=== PATIENT | male | born 1950 | race Caucasian/White ===

== ENCOUNTER 2019-06-05 13:04 | Inpatient (IN) | payer MEDICARE, OTHER ==
[~2019-06-05] VITALS: Ht 167.6 cm; Wt 58.8 kg
[2019-06-05] MEDS ORDERED: ALBUTEROL SULF 2.5 MG/0.5ML(0.5%) NEB SOLN HHN ONE (13:45)
[2019-06-05] MEDS ORDERED: IPRATROPIUM BROM 0.5 MG/2.5ML INH SOL HHN ONE (13:45)
[2019-06-05] MEDS ORDERED: methylPREDNISolone SOD SUCC 125 MG/2 ML VL IV ONE (13:45)
[2019-06-05 14:03] LABS: Basophils # (auto) 0.1 uL; Basophils % (auto) 0.5 % (0.0-2.0); Eosinophils # (auto) 0.1 uL; Eosinophils % (auto) 0.5 % (0.0-7.0); Hematocrit 46.8 % (41.0-53.0); Hemoglobin 15.1 g/dL (13.5-17.5); Lymphocytes # (auto) 1.6 uL; Lymphocytes % (auto) 12.7 % (10.0-50.0); Mean Corpuscular Hemoglobin 27.7 pg (28.0-32.0); Mean Corpuscular Hgb Conc. 32.2 g/dL (32.0-36.0); Mean Corpuscular Volume 86.1 fL (80.0-100.0); Monocytes % (auto) 8.1 % (0.0-12.0); Neutrophils # (auto) 9.8 uL; Neutrophils % (auto) 78.2 % (37.0-80.0); Nucleated Red Blood Cells % 0.2 %; Platelet Count (auto) 320 10^3/uL (140-450); Red Blood Cells 5.43 10^6/uL (4.5-5.90); Red Cell Distribution Width 16.6 % (11.8-14.3); White Blood Cell 12.5 10^3/uL (4.4-10.8)
[2019-06-05 14:13] LABS: Albumin 3.2 g/dL (3.4-5.0); Calcium 8.6 mg/dL (8.5-10.1); Magnesium 2.5 mg/dL (1.6-2.6); Potassium 3.2 mmol/L (3.5-5.1)
[2019-06-05 14:19] LABS: BUN/Creatinine Ratio 19.4; Bilirubin, Total 1.3 mg/dL (0.2-1.0); Total Protein 7.1 g/dL (6.4-8.2)
[2019-06-05 15:08] LABS: Lactic Acid w/Reflex 2.1 mmol/L (0.4-2.0)
[2019-06-05] MEDS ORDERED: FUROSEMIDE 40 MG/4 ML VIAL IV ONE (15:45)
[2019-06-05] MEDS ORDERED: hydrALAZINE HCL 20 MG/ML VL IV PRN (16:00)
[2019-06-05] MEDS ORDERED: CARVEDILOL 3.125 MG TAB PO ONE (16:00)
[2019-06-05] MEDS ORDERED: HYDROcodone-ACET 5/325MG TAB PO PRN (16:00)
[2019-06-05] MEDS ORDERED: ONDANSETRON HCL 4 MG/2 ML VIAL IV PRN (16:00)
[2019-06-05] MEDS ORDERED: ACETAMINOPHEN 500 MG TAB PO PRN (16:00)
[2019-06-05] MEDS ORDERED: MORPHINE SULF INJ 2 MG/ML SYRINGE 1ML IV PRN ×2 (16:00)
[2019-06-05] MEDS ORDERED: NITROGLYCERIN 0.4 MG SL TAB SL PRN (16:00)
[2019-06-05] MEDS ORDERED: AZITHROMYCIN 250 MG TAB PO ONE (16:00)
[2019-06-05] MEDS ORDERED: cefTRIAXone 1GM/50ML D5W 50 ML IV ONE (16:00)
[2019-06-05] MEDS ORDERED: POTASSIUM CHL 20 Meq TABLET PO ONE (16:00)
[2019-06-05] MEDS: IPRATROPIUM BROM 0.5 MG/2.5ML INH SOL NEB SCH (18:38)
[2019-06-05] MEDS: BUDESONIDE (INHALATION) 0.5 MG/2 ML NEB NEB SCH (18:38)
[2019-06-05] MEDS: ALBUTEROL SULF 2.5 MG/0.5ML(0.5%) NEB SOLN NEB SCH (18:38)
[2019-06-05 19:09] VITALS: BP 136/118
[2019-06-05] MEDS: CARVEDILOL 3.125 MG TAB PO SCH (20:43)
[2019-06-05] MEDS: DOCUSATE SOD 100 MG CAP PO SCH (20:43)
[2019-06-05] MEDS: ATORVASTATIN 20 MG TAB PO SCH (20:43)
[2019-06-05 20:56] LABS: Urine Bacteria FEW /hpf (None Seen); Urine Blood Negative /uL (Negative); Urine Specific Gravity 1.005 (1.001-1.035); Urine WBC <1 /hpf (0 - 3)
[2019-06-05 23:00] VITALS: BP 137/113
--- NOTE | 2019-06-05 23:10 | NUR ---
Telemetry admit from ER TOMERJADE admitted to Telemetry unit. Patient oriented to So Marcos RN primary RN, unit, room, bed, and unit policies regarding patient care and visiting hours. Patient now on continuous telemetry monitoring, tele box # 15 and telemetry reading on arrival to unit is NSR. Patient placed on bedside oxygen, weighed by bedscale and encouraged to call if they need something. All questions and concerns addressed, patient verbalized understanding. Note: patient awake and alert, oriented x 4, follows directions, speech unclear. Patient on room air with o2 sat 80-83%, applied oxygen 4L via NC, o2 sat increased to 98%, RR28, noted SOB at rest, lung sound coarse rhonchi throughout. Patient report he "gets SOB when he talks alot." Patient is able to turn independently in bed. Noted blanchable redness to sacrum. Patient denies pain at this time. Urinal provided within reach. IV to right AC 20g intact and patent. Bed low locked position with side rails up x 2 and call light within reach, bed alarm on. Will continue to monitor.
[2019-06-06] MEDS: ALBUTEROL SULF 2.5 MG/0.5ML(0.5%) NEB SOLN NEB SCH ×4 (00:42→18:17)
[2019-06-06] MEDS: IPRATROPIUM BROM 0.5 MG/2.5ML INH SOL NEB SCH ×4 (00:42→18:17)
--- NOTE | 2019-06-06 02:20 | NUR ---
Brody Oshea NP RE: respiratory status patient RR28, labored, SOB, o2 88% with oxygen on at 5L via NC. awaiting call back, will continue care.
[2019-06-06] MEDS ORDERED: FUROSEMIDE 20 MG/2 ML VIAL ONE (02:25)
--- NOTE | 2019-06-06 02:25 | NUR ---
Received call back from AYANNA Oshea updated on patient status, new orders obtained, see EMR. Read and verified orders, will carry out and continue care.
[2019-06-06] MEDS ORDERED: FUROSEMIDE 20 MG/2 ML VIAL IV ONE (02:45)
[2019-06-06 05:47] VITALS: BP 144/116
[2019-06-06] MEDS: BUDESONIDE (INHALATION) 0.5 MG/2 ML NEB NEB SCH ×2 (06:10→18:17)
--- NOTE | 2019-06-06 07:15 | NUR ---
Closing note patient sleeping in bed with oxygen on at 3L via NC, noted chest rise and fall, no s/s of distress or pain. IV intact and patent. Bed low locked position with side rails up x 2, call light within reach, HOB elevated, bed alarm on. Endorsed care to day shift ELIZABETH Davison.
--- NOTE | 2019-06-06 08:00 | NUR ---
Opening Shift Note Assumed care of patient, awake, alert and oriented X4. No S/S of distress/SOB or pain. O2 @ 4 LPM via nasal cannula with Sats @ 96%. Tele# 15, sinus rhythm @ 96 bpm. IV to right antecubital, 20 gauge, patent and saline locked. Instructed on POC and to call for assist PRN, verbalized understanding. Bed locked, in lowest position, call light within reach, will continue to monitor for changes Q1hr and PRN.
[2019-06-06 08:03] LABS: Basophils # (auto) 0.1 uL; Basophils % (auto) 0.5 % (0.0-2.0); Eosinophils # (auto) 0 uL; Hematocrit 46.6 % (41.0-53.0); Lymphocytes # (auto) 0.9 uL; Lymphocytes % (auto) 7.8 % (10.0-50.0); Mean Corpuscular Hemoglobin 27.8 pg (28.0-32.0); Mean Corpuscular Hgb Conc. 32.2 g/dL (32.0-36.0); Mean Corpuscular Volume 86.4 fL (80.0-100.0); Monocytes # (auto) 0.6 uL; Monocytes % (auto) 5.5 % (0.0-12.0); Neutrophils # (auto) 9.8 uL; Neutrophils % (auto) 86.2 % (37.0-80.0); Nucleated Red Blood Cells % 0.2 %; Platelet Count (auto) 288 10^3/uL (140-450); Red Cell Distribution Width 17.2 % (11.8-14.3); White Blood Cell 11.4 10^3/uL (4.4-10.8)
[2019-06-06 08:11] LABS: BUN/Creatinine Ratio 30.3; Potassium 3.7 mmol/L (3.5-5.1)
[2019-06-06 08:51] LABS: INR 1.28 (0.9-1.15); Partial Thromboplastin Time 33.6 sec (23.64-32.05)
[2019-06-06 09:00] VITALS: BP 155/70
[2019-06-06] MEDS ORDERED: LISINOPRIL 10 MG TAB PO SCH (10:00)
[2019-06-06] MEDS ORDERED: FUROSEMIDE 20 MG TAB PO SCH (10:00)
--- NOTE | 2019-06-06 10:30 | NUR ---
WOUND CARE NOTE: IN TO SEE PATIENT AT THIS TIME PER WOUND CARE CONSULT REQUEST. PATIENT WAS NOTED TO HAVE DARK RED RASH IN GROIN/SCROTAL AREAS, WOUND PHOTOS TAKEN UPON ADMIT BY BEDSIDE NURSE FOR REFERENCE, WOUND CONSULT ORDERED. PATIENT ADMITTED TO [facility] WITH DIAGNOSIS OF HEART FAILURE. CURRENT JULIA SCORE IS 18. PATIENT CAN SELF TURN/REPOSITION SELF. PATIENT NOTED TO HAVE INTERTRIGINOUS RASH TO GROIN, PERINEUM, SCROTAL SKIN. SKIN IS DARK/BRIGHT RED. PATIENT WOULD BENEFIT FROM BID/PRN APPLICATION WITH ANTIFUNGAL CLEAR OINTMENT TO INTERTRIGINOUS RASH AREAS, SKIN/WOUND CARE PLAN. NO FURTHER WOUND CARE MONITORING NEEDED. Addendum: 06/06/19 at 1243 by Elsa Rich RN Amended: Links added.
[2019-06-06] MEDS: cefTRIAXone 1GM/50ML D5W 50 ML IV SCH (10:57)
[2019-06-06] MEDS: CARVEDILOL 3.125 MG TAB PO SCH ×2 (11:08→22:06)
[2019-06-06] MEDS: DOCUSATE SOD 100 MG CAP PO SCH ×2 (11:09→22:04)
[2019-06-06] MEDS: ASPirin-EC 81 mg tab PO SCH (11:09)
[2019-06-06] MEDS: AZITHROMYCIN 250 MG TAB PO SCH (11:10)
[2019-06-06] MEDS: FAMOTIDINE 20 MG TAB PO SCH (12:05)
--- NOTE | 2019-06-06 12:21 | NUR ---
Pt was given an advance directive.
[2019-06-06 13:00] VITALS: BP 144/104
--- NOTE | 2019-06-06 15:22 | NUR ---
CARDIOLOGY Jordon Guillaume at bedside for Cardiology consult. New orders received and followed through. Patient updated on plan of care, verbalized understanding.
[2019-06-06] MEDS ORDERED: amLODIPine BESYLATE 5 MG TAB PO ONE (15:30)
--- NOTE | 2019-06-06 16:47 | NUR ---
assessment Per consult living situation. Patient informed me he lives with family and functions independently. Patient informed me he will return home on discharge. Patient informed me he feels safe returning home on discharge. Patient informed me he has no post discharge needs. Addendum: 06/06/19 at 1649 by Clair Gay Amended: Links added.
[2019-06-06] MEDS: FUROSEMIDE 40 MG/4 ML VIAL IV SCH (17:49)
[2019-06-06 18:42] VITALS: BP 113/92
--- NOTE | 2019-06-06 18:58 | NUR ---
Care endorsed to ELIZABETH Rizzo, night nurse.
--- NOTE | 2019-06-06 20:00 | NUR ---
Opening Shift Note Assumed care of patient, awake and alert, oriented x 2, re-oriented to year and situation, follows directions, unclear speech. On oxygen at 3L via NC with even and unlabored respirations, No S/S of distress or SOB. patient denies pain at this time. Patient is able to turn in bed independently, sacrum intact, no redness noted. Noted absorbant pads soiled in urine, patient report he is aware of the need to void but couldn't get to urinal in time. Provided pericare, cleansed with soap and water, pat dry, noted redness to bilateral groins and left scrotum, applied antifungal cream. Full linen change. Educated patient to call if he urinates himself, educated on risk for skin breakdown, patient verbalized understanding. IV intact and patent. Bed low locked position with side rails up x 3 and call light within reach, bed alarm on. Instructed on POC and to call for assist PRN, will continue to monitor for changes Q1hr and PRN.
[2019-06-06 22:00] VITALS: BP 117/83
[2019-06-06] MEDS: ATORVASTATIN 20 MG TAB PO SCH (22:04)
[2019-06-07 05:00] VITALS: BP 98/62
--- NOTE | 2019-06-07 05:30 | NUR ---
Strict I & O / Periods of incontinence
[2019-06-07] MEDS: FUROSEMIDE 40 MG/4 ML VIAL IV SCH ×2 (06:00→18:41)
[2019-06-07 06:05] LABS: Basophils # (auto) 0.1 uL; Basophils % (auto) 0.6 % (0.0-2.0); Eosinophils # (auto) 0.3 uL; Hematocrit 47.6 % (41.0-53.0); Hemoglobin 15.7 g/dL (13.5-17.5); Lymphocytes # (auto) 1.2 uL; Lymphocytes % (auto) 8.6 % (10.0-50.0); Mean Corpuscular Hemoglobin 28.3 pg (28.0-32.0); Mean Corpuscular Hgb Conc. 32.9 g/dL (32.0-36.0); Mean Corpuscular Volume 85.8 fL (80.0-100.0); Monocytes # (auto) 0.9 uL; Monocytes % (auto) 6.9 % (0.0-12.0); Neutrophils % (auto) 81.9 % (37.0-80.0); Nucleated Red Blood Cells % 0.3 %; Platelet Count (auto) 282 10^3/uL (140-450); Red Blood Cells 5.55 10^6/uL (4.5-5.90); Red Cell Distribution Width 17.2 % (11.8-14.3); White Blood Cell 13.4 10^3/uL (4.4-10.8)
[2019-06-07] MEDS: ALBUTEROL SULF 2.5 MG/0.5ML(0.5%) NEB SOLN NEB SCH ×3 (06:15→18:53)
[2019-06-07] MEDS: IPRATROPIUM BROM 0.5 MG/2.5ML INH SOL NEB SCH ×3 (06:15→18:54)
[2019-06-07] MEDS: BUDESONIDE (INHALATION) 0.5 MG/2 ML NEB NEB SCH ×2 (06:16→18:54)
[2019-06-07 06:20] LABS: Albumin 2.8 g/dL (3.4-5.0); Calcium 8.2 mg/dL (8.5-10.1); Potassium 3.5 mmol/L (3.5-5.1)
[2019-06-07 06:24] LABS: BUN/Creatinine Ratio 28.4; Bilirubin, Total 0.8 mg/dL (0.2-1.0); Total Protein 6.2 g/dL (6.4-8.2)
--- NOTE | 2019-06-07 07:00 | NUR ---
Closing note patient sleeping in bed with oxygen on at 3L via NC, noted chest rise and fall, RT at bedside, o2 99%, no s/s of distress or pain. IV intact and patent. Bed low locked position with side rails up x 2, call light within reach, HOB elevated, bed alarm on. Endorsed care to day shift RN.
[2019-06-07 09:00] VITALS: BP 101/73
[2019-06-07] MEDS: FAMOTIDINE 20 MG TAB PO SCH (09:58)
[2019-06-07] MEDS: DOCUSATE SOD 100 MG CAP PO SCH ×2 (09:58→21:28)
[2019-06-07] MEDS: AZITHROMYCIN 250 MG TAB PO SCH (09:58)
[2019-06-07] MEDS: ASPirin-EC 81 mg tab PO SCH (10:00)
[2019-06-07] MEDS: CARVEDILOL 3.125 MG TAB PO SCH (10:00)
--- NOTE | 2019-06-07 10:00 | NUR ---
COMPLETE LINEN CHANCE PERFORMED PATIENT GIVEN FULL BED BATH AND COMPLETE LINEN CHANGE PERFORMED. ANTIFUNGAL CREAM APPLIED TO PRABHA AREA AND SCROTAL AREA. PATIENT TOLERATED IT WELL WITH NO C/O PAIN OR DISTRESS. WILL CONT CARE. FALL PRECS IN PLACE PER PROTOCOL.
[2019-06-07] MEDS: cefTRIAXone 1GM/50ML D5W 50 ML IV SCH (10:02)
--- NOTE | 2019-06-07 10:53 | NUR ---
STRESS TEST PATIENT NPO FOR STRESS TEST ORDERED BY [facility]. PER TECH THEY WILL START TEST BUT MAY NOT FINISH TODAY DUE TO HIGH NUMBER OF PATIENT'S AWAITING TESTING. PATIENT AWARE AND VERBALIZED UNDERSTANDING. CONT CARE
[2019-06-07 13:00] VITALS: BP 107/79
[2019-06-07 17:00] VITALS: BP 113/81
--- NOTE | 2019-06-07 17:30 | NUR ---
Regarding stress test This rn spoke to Harry in nuc med, he states patient stress test will be done tomorrow morning because "there is no time today". Patient made aware and will be provided dinner tray. Upon entering the room patient noted sleeping on left side, once patient turned on his back, the left hand noted cyanotic and cold. Pulses assessed and no changes noted from this morning. Pulses palpable to bilat radial. Right hand mildly cyanotic and cold. Pulse ox assessed on right hand on room air is 91%, left hand pulse ox does not read. Patient placed on 2L n/c supplemental oxygen and pulse ox taken via earlobe and right index finger and is 96%. Warm pack applied to bilat hands. Patient denies any pain, denies hx arthritis. No distress or sob noted. Patient awake and alert and answers questions appropriately. Grisel Navarro NP made aware regarding stress test and cyanosis noted and new order for arterial US left extremity ordered. Will cont to monitor
--- NOTE | 2019-06-07 18:45 | NUR ---
Patient resting in bed comfortably, no s/s of pain or distress noted. Patient currently on 2L n/c sat 94%. Left hand noted warm dry normal color. R.T. at bedside for treatment. Will endorse care to oncoming rn
--- NOTE | 2019-06-07 19:45 | NUR ---
Opening Shift Note Assumed care of patient, awake and alert, oriented x 4, follows directions, unclear speech. On oxygen at 2L via NC with even and unlabored respirations, No S/S of distress or SOB. patient denies pain at this time. Patient is able to turn in bed independently. Noted absorbant pads slightly soiled in urine, provided pericare, cleansed with soap and water, pat dry, applied noted redness to bilateral groins and left scrotum, applied z-guard to left and right buttocks. Partial linen change. Educated patient to call if he urinates himself, educated on risk for skin breakdown, patient verbalized understanding. IV intact and patent. Bed low locked position with side rails up x 3 and call light within reach, bed alarm on. Instructed on POC for NPO after midnight, patient verbalized understanding. Instructed to call for assist PRN, will continue to monitor for changes Q1hr and PRN.
[2019-06-07] MEDS: ATORVASTATIN 20 MG TAB PO SCH (21:28)
[2019-06-07 22:00] VITALS: BP 123/54
[2019-06-07] MEDS ORDERED: CARVEDILOL 3.125 MG TAB PO SCH (22:00)
--- NOTE | 2019-06-08 04:00 | NUR ---
Attempted secondary IV x 2 unsuccessful. Educated patient for indication of secondary IV, patient verbalized understanding but continued to move around and swing hands at staff.
[2019-06-08 05:23] VITALS: BP 114/79
[2019-06-08] MEDS: FUROSEMIDE 40 MG/4 ML VIAL IV SCH (06:18)
--- NOTE | 2019-06-08 06:30 | NUR ---
Rounds patient sleeping with even and unlabored respirations, noted NC was off patient, attempted to place oxygen back on, patient swung hand, grabbed oxygen tubing and threw it, educated patient for indication of oxygen patient stated "You can shave it up your ass." No s/s of respiratory distress. Noted absorbant pad was soiled with urine, attempted to change patient, patient refused, educated patient on risk for skin breakdown, patient stated "I don't care, leave me alone." Will attempt again and continue care. Bed alarm on.
--- NOTE | 2019-06-08 06:45 | NUR ---
Linens changed patient lying at foot of bed, no s/s of distress, even and unlabored respirations. Explained to patient linens needed to changed due to soiled linens, patient compliant at this time with BUDDY Pa at bedside. Cleansed patient, changed linens and gown, patient sitting upright in bed with oxygen on at 2L via NC. Bed alarm on.
--- NOTE | 2019-06-08 07:00 | NUR ---
Closing note patient sleeping in bed with oxygen on at 2L via NC, noted chest rise and fall, no s/s of distress or pain. IV intact and patent. Patient was incontinent throughout the night, did not use urinal during shift. Patient is clean and dry and this time. Bed low locked position with side rails up x 2, call light within reach, HOB elevated, bed alarm on. Patient remains NPO. Endorsed care to day shift RN.
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
--- NOTE | 2019-06-08 07:30 | NUR ---
AMA Note JADE JEFF states they want to leave the hospital Against Medical Advice (AMA). Patient encouraged to stay for further treatment/stabilization. Patient advised of the risks and benefits of leaving AMA. Patient alert and oriented x 4, verbalized understanding. Patient encouraged to return to the ER if symptoms do not improve or worsen. continuous improvement coachELIZABETH Bearden and Hazardous Waste Remover at bedside.
--- NOTE | 2019-06-08 07:34 | NUR ---
Roxie Dickey notified of AMA
--- NOTE | 2019-06-08 07:40 | NUR ---
PATIENT LEFT AMA
--- NOTE | 2019-06-08 07:40 | NUR ---
Roxie Dickey at bedside
--- NOTE | 2019-06-08 08:35 | NUR ---
Received call from family spoke with his brother Genaro, updated on status, addressed question and concerns. contact phone number [phone].
--- NOTE | 2019-06-08 08:43 | NUR ---
AMA Note JADE JEFF states they want to leave the hospital Against Medical Advice (AMA). Patient encouraged to stay for further treatment/stabilization. SAMMY NOWAK MD notified of patient's wishes. Patient advised of the risks and benefits of leaving AMA. Patient verbalized understanding. Patient encouraged to return to the ER if symptoms do not improve or worsen. Addendum: 06/08/19 at 0844 by So Marcos RN RN HANDY. WRONG TIME. DISREGARD.
== END 2019-06-08 07:11 | disposition left against medical advice (07) | DRG 871 ==
LOC: ER 13:04 → TELE 13:05 → TELE-WESTW 22:38
PROVIDERS: ADMIT Nurse Practitioner Acute Care; ATTEND Family Medicine
DX: A41.9 Sepsis, unspecified organism (principal); J96.00 Acute respiratory failure, unspecified whether with hypoxia or hypercapnia; N17.0 Acute kidney failure with tubular necrosis; J18.9 Pneumonia, unspecified organism; I50.43 Acute on chronic combined systolic (congestive) and diastolic (congestive) heart failure; J44.1 Chronic obstructive pulmonary disease with (acute) exacerbation; E44.0 Moderate protein-calorie malnutrition; J44.0 Chronic obstructive pulmonary disease with (acute) lower respiratory infection; I11.0 Hypertensive heart disease with heart failure; Z60.2 Problems related to living alone; F17.210 Nicotine dependence, cigarettes, uncomplicated; Z53.21 Procedure and treatment not carried out due to patient leaving prior to being seen by health care provider; E78.00 Pure hypercholesterolemia, unspecified; E87.6 Hypokalemia; Z86.73 Personal history of transient ischemic attack (TIA), and cerebral infarction without residual deficits; Z98.49 Cataract extraction status, unspecified eye; Z87.01 Personal history of pneumonia (recurrent); Z72.89 Other problems related to lifestyle; Z83.3 Family history of diabetes mellitus; Z71.6 Tobacco abuse counseling; Z68.20 Body mass index [BMI] 20.0-20.9, adult; Z79.899 Other long term (current) drug therapy
CPT/HCPCS: 36415; 36600; 71045; 80048; 80053; 81001; 82805; 82962; 83605; 83735; 83880; 84484; 85025; 85610; 85730; 86141; 87040; 87081; 93005; 93306; 93930; 94640; 94644; 94761; 96365; 96375; G0378; J0696